=== PATIENT | female | born 1965 | race Caucasian/White ===

== ENCOUNTER 2017-11-19 17:14 | Emergency (ER) | payer OTHER ==
[~2017-11-19] VITALS: Ht 160 cm; Wt 65.5 kg
[2017-11-19 17:21] VITALS: BP 145/77
[2017-11-19] MEDS ORDERED: KETOROLAC 30 MG/ML VIAL IM ONE (20:10)
[2017-11-19] MEDS ORDERED: PHENAZOPYRIDINE 100 MG TAB PO ONE (20:10)
[2017-11-19] MEDS ORDERED: KETOROLAC 30 MG/ML VIAL IVP ONE (20:20)
[2017-11-19] MEDS ORDERED: cefTRIAXone 1,000 MG VIAL ONE (21:00)
[2017-11-19 23:33] VITALS: BP 108/68
== END 2017-11-19 23:33 | disposition home or self-care (01) ==
LOC: MED 17:14
DX: N39.0 Urinary tract infection, site not specified (principal); K21.9 Gastro-esophageal reflux disease without esophagitis; I10 Essential (primary) hypertension
CPT/HCPCS: 74176; 81002; 81025; 96365; 96375; 99284; J0696; J1885; J7060

== ENCOUNTER 2018-09-20 07:40 | Emergency (ER) | payer OTHER ==
[~2018-09-20] VITALS: Ht 157.5 cm; Wt 63.5 kg
--- NOTE | 2018-09-20 07:40 | NUR ---
Patient BIBA BLS, transferred to bed 11. RN evaluating patient at bedside.
[2018-09-20 07:42] VITALS: BP 127/63
--- NOTE | 2018-09-20 07:48 | NUR ---
PT BIB EMS C/O NAUSEA, VOMITING, DIZZINESS X 3 DAYS, WORSE THIS AM. PT DENIES ABD PAIN, NO SOB, OR CP. VOMITED X 3 TODAY. DENIES DIARRHEA OR URINARY COMPLAINTS. VSS. ERMD TO EVALUATE PT. HX: HTN, KIDNEY: POYCYSTIC CYSTS, HYSTERECTOMY RX: UNABLE TO OBTAIN
--- NOTE | 2018-09-20 07:49 | NUR ---
Dr. Flores evaluating patient at bedside.
--- NOTE | 2018-09-20 07:50 | NUR ---
Pupils equal and reactive to light bilaterally. No facial droop noted. No smile deficit noted. Speech normal for patient. Patient is alert and oriented to person, place, time and event. Bilateral hand cnc lathe machinist equal. Bilateral foot push equal.
[2018-09-20] MEDS ORDERED: ONDANSETRON 4 MG/2 ML VIAL IVP ONE (08:00)
[2018-09-20] MEDS ORDERED: MECLIZINE 25 MG TAB PO ONE (08:00)
--- NOTE | 2018-09-20 09:06 | NUR ---
Patient appears to be resting comfortably in bed. Vital Signs within normal limits. Respirations even and unlabored.
--- NOTE | 2018-09-20 09:30 | NUR ---
Dr Flores re-evaluating pt at bedside.
--- NOTE | 2018-09-20 09:31 | NUR ---
Dr. Flores re-evaluating patient at bedside.
[2018-09-20] MEDS ORDERED: METOCLOPRAMIDE 10 MG/2 ML INJ VIAL IVP ONE (09:35)
--- NOTE | 2018-09-20 10:37 | NUR ---
Road test performed by GELY Vazquez. Pt ambulating with steady gait.
--- NOTE | 2018-09-20 10:49 | NUR ---
IV removed, catheter intact and site benign. Applied folded 4x4 gauze and tape to stop bleeding.
[2018-09-20 10:50] VITALS: BP 104/68
--- NOTE | 2018-09-20 10:50 | NUR ---
Patient discharged with v/s stable. Written and verbal after care instructions given and explained. Patient alert, oriented and verbalized understanding of instructions. Wheel Chair Assisted with to car. All questions addressed prior to discharge. ID band removed. Patient advised to follow up with PMD. Rx of Meclizine and Zofran given. Patient educated on indication of medication including possible reaction and side effects. Opportunity to ask questions provided and answered.
== END 2018-09-20 10:50 | disposition home or self-care (01) ==
LOC: MED 07:40
DX: R42 Dizziness and giddiness (principal); R11.2 Nausea with vomiting, unspecified; K21.9 Gastro-esophageal reflux disease without esophagitis; I10 Essential (primary) hypertension; Z90.710 Acquired absence of both cervix and uterus
CPT/HCPCS: 81002; 82948; 93005; 96374; 96375; 99283; J2405; J2765; J8597

== ENCOUNTER 2021-04-26 21:07 | Emergency (ER) | payer OTHER ==
[~2021-04-26] VITALS: Ht 157.5 cm; Wt 65.3 kg
[2021-04-26 21:20] VITALS: BP 131/77
--- NOTE | 2021-04-26 21:20 | NUR ---
TO BED AMBULATORY
--- NOTE | 2021-04-26 21:31 | NUR ---
X-Ray at bedside.
[2021-04-26 22:05] LABS: BASOPHILS % (AUTO) 0.3 % (0.0-2.0); EOSINOPHILS # (AUTO) 0.2 K/uL (0-0.4); EOSINOPHILS % (AUTO) 2.6 % (0.0-4.0); HEMOGLOBIN 12.5 g/dL (12.0-16.0); LYMPHOCYTES % (AUTO) 32.4 % (20.5-51.1); MEAN CORPUSCULAR HEMOGLOBIN 29 pg (27-31); MEAN CORPUSCULAR HGB CONC 34 g/dL (33-37); MEAN CORPUSCULAR VOLUME 86.2 fL (80-94); MONOCYTES # (AUTO) 0.5 K/uL (0.8-1.0); NEUTROPHILS # (AUTO) 3.5 K/uL (1.8-7.7); NEUTROPHILS % (AUTO) 56.7 % (42.2-75.2); PLATELET COUNT (AUTO) 245 K/uL (140-450); RED BLOOD CELL COUNT(AUTO) 4.29 MIL/uL (4.20-5.40); WHITE BLOOD COUNT (AUTO) 6.1 K/uL (4.8-10.8)
[2021-04-26 22:39] LABS: ALBUMIN 3.5 g/dL (3.4-5.0); CARBON DIOXIDE 27.8 mmol/L (21-32); POTASSIUM 3.8 mmol/L (3.5-5.1); TOTAL BILIRUBIN 0.2 mg/dL (0.0-1.0)
[2021-04-26] MEDS ORDERED: ALUMINUM HYD/MAG/SIMETHICONE 30 ML, DICYCLOMINE HCL LIQUID 20 MG, LIDOCAINE VISCOUS 2% ... PO ONE ×3 (23:00)
[2021-04-26] MEDS ORDERED: PANTOPRAZOLE 40 MG INJ VIAL IVP ONE (23:00)
[2021-04-26] MEDS ORDERED: DICYCLOMINE HCL LIQUID 10 MG/5 ML UDC ONE (23:09)
[2021-04-26] MEDS ORDERED: ALUMINUM HYD/MAG/SIMETHICONE 30 ML UDC ONE (23:09)
--- NOTE | 2021-04-26 23:09 | NUR ---
Dr. Van examining patient.
[2021-04-27 00:56] VITALS: BP 134/61
--- NOTE | 2021-04-27 00:56 | NUR ---
PATIENT CLEARWED FOR DISHCARGE AT THIS TIME. ADVISED TO FOLLOW UP WITH PCP AND RETURN IF CONDITION WORSENS. NO OTHER COMPLAINTS OR CONCERNS FOLLOWINF DISHCARGE TEACHING,
== END 2021-04-27 00:56 | disposition home or self-care (01) ==
LOC: MED 21:07
DX: R07.89 Other chest pain (principal); M25.511 Pain in right shoulder; M25.512 Pain in left shoulder; R10.11 Right upper quadrant pain; K21.9 Gastro-esophageal reflux disease without esophagitis; I10 Essential (primary) hypertension
CPT/HCPCS: 36415; 71045; 80053; 84484; 85025; 93005; 96374; 99285; C9113

== ENCOUNTER 2021-07-24 09:07 | Emergency (ER) | payer OTHER ==
[~2021-07-24] VITALS: Ht 157.5 cm; Wt 66.3 kg
[2021-07-24 09:13] VITALS: BP 133/79
--- NOTE | 2021-07-24 09:20 | NUR ---
PT AMB TO BED 1.
--- NOTE | 2021-07-24 09:35 | NUR ---
55/F BIB SELF WITH C/O LOWER BACK PAIN, DYSURIA, HEMATURIA X10 DAYS. PATIENT STATES SHE HAS BEEN TAKING AZO CRANBERRY PILLS WITH NO RELIEF, REPORTS ONE DAY OF FEVER. PATIENT DENIES TAKING PAIN MEDICATION, REPORTS 10/10 BURNING, SHARP PAIN RADIATING FROM LOWER BACK TO BILATERAL FLANKS. DENIES N/V/D.
--- NOTE | 2021-07-24 09:51 | NUR ---
URINE SAMPLE WALKED TO LAB
[2021-07-24] MEDS ORDERED: PYR100 PO (10:08)
[2021-07-24] MEDS ORDERED: NITR100C7 PO (10:08)
[2021-07-24 10:15] VITALS: BP 133/79
[2021-07-24 10:15] LABS: APPEARANCE,URINE CLEAR (CLEAR); BILIRUBIN,URINE NEGATIVE (NEGATIVE); BLOOD, URINE NEGATIVE (NEGATIVE); COLOR,URINE YELLOW (YELLOW); LEUKOCYTE ESTERASE ,URINE 1+ (NEGATIVE); NITRITE, URINE NEGATIVE (NEGATIVE); UGLUCOSE NEGATIVE (NEGATIVE)
--- NOTE | 2021-07-24 10:16 | NUR ---
Patient discharged with v/s stable. Written and verbal after care instructions ABOUT URINARY TRACT INFECTION given and explained. Patient alert, oriented and verbalized understanding of instructions. Ambulatory with steady gait. All questions addressed prior to discharge. ID band removed. Patient advised to follow up with PMD. Rx of MACROBID AND PYRIDIUM given. Patient educated on indication of medication including possible reaction and side effects. Opportunity to ask questions provided and answered.
[2021-07-24 10:30] LABS: RBC,URINE 0-5 /HPF (0-5); WBC,URINE 0-5 /HPF (0-5)
[2021-07-24 10:31] LABS: OTHER CASTS, URINE None Seen /LPF (None Seen)
== END 2021-07-24 10:15 | disposition home or self-care (01) ==
LOC: MED 09:07
DX: N39.0 Urinary tract infection, site not specified (principal); K21.9 Gastro-esophageal reflux disease without esophagitis; I10 Essential (primary) hypertension; Z87.448 Personal history of other diseases of urinary system; Z79.899 Other long term (current) drug therapy; Z79.2 Long term (current) use of antibiotics
CPT/HCPCS: 81001; 87086; 99283

== ENCOUNTER 2021-10-29 10:00 | Emergency (ER) | payer OTHER ==
[~2021-10-29] VITALS: Ht 160 cm; Wt 65.8 kg
[~2021-10-29 10:00] MED LIST: NITR100C7 PO; PYR100 PO
[2021-10-29 10:14] VITALS: BP 130/88
[2021-10-29] MEDS ORDERED: ACETAMINOPHEN EXTRA STRENGTH 500 MG TAB PO ONE (10:20)
--- NOTE | 2021-10-29 10:25 | NUR ---
COVID KAILEE, FLU SWABS DONE.
--- NOTE | 2021-10-29 10:30 | NUR ---
TENT1
[2021-10-29] MEDS ORDERED: CETI1TAB5 PO (11:10)
[2021-10-29] MEDS ORDERED: ROB PO (11:10)
[2021-10-29 11:50] VITALS: BP 123/75
--- NOTE | 2021-10-29 11:50 | NUR ---
Patient discharged with v/s stable. Written and verbal after care instructions given and explained. Patient alert, oriented and verbalized understanding of instructions. Ambulatory with steady gait. All questions addressed prior to discharge. ID band removed. Patient advised to follow up with PMD. Rx of MaxwellYRTEC-DXUANITUSSIN given. Patient educated on indication of medication including possible reaction and side effects. Opportunity to ask questions provided and answered.
[2021-10-29] MEDS ORDERED: NIRM1TAB5 PO (12:56)
== END 2021-10-29 11:50 | disposition home or self-care (01) ==
LOC: MED 10:00
DX: U07.1 COVID-19 (principal); K21.9 Gastro-esophageal reflux disease without esophagitis; I10 Essential (primary) hypertension; Z79.899 Other long term (current) drug therapy
CPT/HCPCS: 71045; 99284

== ENCOUNTER 2022-08-30 09:32 | Emergency (ER) | payer OTHER ==
[~2022-08-30] VITALS: Ht 160 cm; Wt 68.9 kg
[~2022-08-30 09:32] MED LIST changes: +CETI1TAB5 PO; +NIRM1TAB5 PO; +ROB PO
[2022-08-30 09:36] VITALS: BP 142/79; PULSE 107; RESP 20; TEMP 98; O2SAT 96
--- NOTE | 2022-08-30 09:48 | NUR ---
UA COLLECTED 20G RAC ,TOLERATED WELL, BLOOD COLLECTED
[2022-08-30] MEDS ORDERED: MORPHINE SULFATE 2 MG/ML SYR IVP STA (09:51)
[2022-08-30] MEDS ORDERED: KETOROLAC 15 MG/ML VIAL IVP ONE (09:55)
--- NOTE | 2022-08-30 10:15 | NUR ---
pt medicated per MD orders
--- NOTE | 2022-08-30 10:19 | NUR ---
wheeled to [facility] on [facility]
[2022-08-30 10:30] LABS: APPEARANCE,URINE CLEAR (CLEAR); BILIRUBIN,URINE NEGATIVE (NEGATIVE); BLOOD, URINE NEGATIVE (NEGATIVE); COLOR,URINE YELLOW (YELLOW); LEUKOCYTE ESTERASE ,URINE NEGATIVE (NEGATIVE); NITRITE, URINE NEGATIVE (NEGATIVE); PH,URINE 6.5 (5.0-9.0); UGLUCOSE NEGATIVE (NEGATIVE)
--- NOTE | 2022-08-30 10:37 | NUR ---
pt wheeled to bed11 from radiology.
[2022-08-30 10:45] LABS: ALBUMIN 3.7 g/dL (3.4-5.0); ASPARTATE AMINOTRANSFERASE 23 U/L (15-37); CHLORIDE 104 mmol/L (98-107); CREATININE 0.9 mg/dL (0.6-1.3); GFR ARICAN-AMERICAN 83 mL/min (>90); GLUCOSE 134 mg/dL (74-106); LIPASE 122 U/L (73-393); SODIUM SERUM 140 mmol/L (136-145); TOTAL BILIRUBIN 0.5 mg/dL (0.0-1.0); UREA NITROGEN, BLOOD 14 mg/dL (7-18)
[2022-08-30 10:51] LABS: BASOPHILS % (AUTO) 0.1 % (0.0-2.0); EOSINOPHILS # (AUTO) 0.1 K/uL (0-0.4); EOSINOPHILS % (AUTO) 1.8 % (0.0-4.0); HEMATOCRIT 40.8 % (36-48); HEMOGLOBIN 13.9 g/dL (12.0-16.0); LYMPHOCYTES # (AUTO) 2.5 K/uL (2.5-16.5); LYMPHOCYTES % (AUTO) 31.7 % (20.5-51.1); MEAN CORPUSCULAR HEMOGLOBIN 30 pg (27-31); MEAN CORPUSCULAR HGB CONC 34 g/dL (33-37); MEAN CORPUSCULAR VOLUME 86.6 fL (80-94); MONOCYTES # (AUTO) 0.6 K/uL (0.8-1.0); NEUTROPHILS # (AUTO) 4.7 K/uL (1.8-7.7); NEUTROPHILS % (AUTO) 59.4 % (42.2-75.2); PLATELET COUNT (AUTO) 251 K/uL (140-450); RED CELL DISTRIBUTION WIDTH 12.6 % (11.6-13.7)
[2022-08-30] MEDS ORDERED: FAMO-90 PO (12:38)
[2022-08-30] MEDS ORDERED: ACET-8905 PO (12:38)
[2022-08-30] MEDS ORDERED: IBUP-1842 PO (12:38)
--- NOTE | 2022-08-30 12:45 | NUR ---
IV removed, catheter intact and site benign. Applied folded 4x4 gauze and tape to stop bleeding.
[2022-08-30 12:50] VITALS: BP 134/70; PULSE 92; RESP 18; TEMP 98.1; O2SAT 96
--- NOTE | 2022-08-30 12:50 | NUR ---
Patient discharged with v/s stable. Written and verbal after care instructions given and explained. Patient alert, oriented and verbalized understanding of instructions. Ambulatory with steady gait. All questions addressed prior to discharge. ID band removed. Patient advised to follow up with PMD. Rx of HYDROCODONE-ACETAMINOPHEN,PEPCID,MOTRIN given. Patient educated on indication of medication including possible reaction and side effects. Opportunity to ask questions provided and answered.
== END 2022-08-30 12:50 | disposition home or self-care (01) ==
LOC: MED 09:32
DX: K44.9 Diaphragmatic hernia without obstruction or gangrene (principal); Q61.3 Polycystic kidney, unspecified; K76.89 Other specified diseases of liver; K21.9 Gastro-esophageal reflux disease without esophagitis; I10 Essential (primary) hypertension; Z79.899 Other long term (current) drug therapy
CPT/HCPCS: 36415; 71045; 74176; 80053; 81003; 83690; 84484; 85025; 93005; 96374; 96375; 99285; J1885; J2270; Q0092